=== PATIENT | female | born 1990 | race African-American/Black ===

== ENCOUNTER 2017-08-11 11:18 | Emergency (ER) | payer BC, MEDICAID ==
[2017-08-11] MEDS ORDERED: ACETAMINOPHEN 325 MG TABLET PO ONE (11:36)
[2017-08-11 12:27] LABS: APPEARANCE,URINE SLIGHTLY-CLOUDY; BILIRUBIN,URINE NEGATIVE (NEGATIVE); GLUCOSE, URINE NEGATIVE (NEGATIVE); KETONES,URINE NEGATIVE (NEGATIVE); LEUKOCYTE ESTERASE,URINE NEGATIVE (NEGATIVE); NITRITE,URINE NEGATIVE (NEGATIVE); PROTEIN,URINE 30 mg/dL (NEGATIVE); URINE SPECIFIC GRAVITY 1.023
--- NOTE | 2017-08-11 12:35 | ER Document Report ---
HPI - HPI Patient complains to provider of: Fever and muscle aches Onset: This morning Onset/Duration: Sudden Pain Level: 4 Context: 27-year-old with 2 week female developed fever and body aches today. No dysuria. No sore throat or cough. No nasal congestion. No chest pain or shortness of breath. No abdominal pain. No vomiting or diarrhea. Associated Symptoms: None Exacerbated by: Denies Relieved by: Denies Similar symptoms previously: No Recently seen / treated by doctor: No - ROS ROS below otherwise negative: Yes Systems Reviewed and Negative: Yes All other systems reviewed and negative - CONSTITUTIONAL Constitutional: REPORTS: Fever, Chills - EENT EENT: REPORTS: Sore Throat - RESPIRATORY Respiratory: REPORTS: Coughing - REPRODUCTIVE Reproductive: REPORTS: : Past Medical History - General Information source: Patient - Social History Smoking Status: Never Smoker Chew tobacco use (# tins/day): No Frequency of alcohol use: None Drug Abuse: None Lives with: Family Family History: Reviewed & Not Pertinent Patient has suicidal ideation: No Patient has homicidal ideation: No - Medical History Medical History: Negative Renal/ Medical History: Denies: Hx Peritoneal Dialysis Surgical Hx: Negative Vertical Provider Document - CONSTITUTIONAL Agree With Documented VS: Yes Exam Limitations: No Limitations - INFECTION CONTROL TRAVEL OUTSIDE OF THE [place] IN LAST 30 DAYS: No - HEENT HEENT: Normal ENT Exam, Normocephalic. negative: Conjuctival Injection - NECK Neck: Supple. negative: Lymphadenopathy-Left, Lymphadenopathy-Right - RESPIRATORY Respiratory: Breath Sounds Normal, No Respiratory Distress O2 Sat by Pulse Oximetry: 97 - CARDIOVASCULAR Cardiovascular: Regular Rate, Regular Rhythm - GI/ABDOMEN Gastrointestinal: Abdomen Soft, Abdomen Non-Tender, Abdominal Mass - fundus - BACK Back: Normal Inspection. negative: CVA Tenderness-Right, CVA Tenderness-Left - MUSCULOSKELETAL/EXTREMETIES Musculoskeletal/Extremeties: TERRANCE RICHTER - NEURO Level of Consciousness: Awake, Alert, Appropriate - DERM Integumentary: Warm, Dry, No Rash Course - Re-evaluation Re-evalutation: 08/11/17 12:34 Influenza and urinalysis are negative. I explained to the patient that she is has a virus of some sort she is welcome to come back to the emergency room while she is visiting until tomorrow from [place] in case new symptoms occur or she has any concerns. The patient's pulse is 100 at the bedside although the nurse charted 126. heart tones were good and she feels movement. 08/11/17 21:49 - Vital Signs Vital signs: Temp Pulse Resp BP Pulse Ox 101.8 F H 132 H 20 148/75 H 97 08/11/17 11:25 08/11/17 11:25 08/11/17 11:25 08/11/17 11:25 08/11/17 11:25 - Laboratory Laboratory results interpreted by me: 08/11/17 12:03 Urine Protein 30 H Urine Urobilinogen 2.0 H Discharge - Discharge Clinical Impression: Myalgia Fever Qualifiers: Fever type: unspecified Qualified Code(s): R50.9 - Fever, unspecified Condition: Good Disposition: HOME, SELF-CARE Instructions: Fever ([facility]), Myalagia (Muscle Pain) ([facility]) Additional Instructions: tylenol for fever plenty of fluids to er any concerns while visiting from [place] Please complete the patient satisfaction survey if you get one, and return it.. If you do not receive a survey, then you can go to the [facility] website, [email or web address] and place your comments about your very good care. Thank you very much. It was a pleasure being your medical provider today.
[2017-08-11 12:45] VITALS: BP 143/59
== END 2017-08-11 12:45 | disposition home or self-care (01) ==
LOC: ER 11:18
DX: R50.9 Fever, unspecified (principal); M79.1 Myalgia
CPT/HCPCS: 81001; 87086; 87804; 99283